=== PATIENT | male | born 1985 | race Caucasian/White ===

== ENCOUNTER 2022-04-03 10:31 | Emergency (ER) | payer OTHER ==
[~2022-04-03] VITALS: Ht 165.1 cm; Wt 81.7 kg
== END 2022-04-03 11:50 | disposition home or self-care (01) ==
LOC: ED 10:31
DX: S93.401A Sprain of unspecified ligament of right ankle, initial encounter (principal); X58.XXXA Exposure to other specified factors, initial encounter
CPT/HCPCS: 73610; 99283-25

== ENCOUNTER 2022-11-23 21:20 | Emergency (ER) | payer OTHER ==
[~2022-11-23] VITALS: Ht 165.1 cm; Wt 81.7 kg
[2022-11-24 00:26] LABS: BILIRUBIN, URINE NEGATIVE (negative); BLOOD/HGB, URINE NEGATIVE (Negative); KETONE, URINE NEGATIVE (Negative); LEUK ESTERASE, URINE NEGATIVE (negative); NITRITE, URINE NEGATIVE (negative); PH, URINE 5.5 (5-7)
[2022-11-24 01:43] LABS: BASOPHILS 1.4 % (0-2); EOSINOPHILS 2.4 % (0-6); HEMATOCRIT 43.5 % (35.0-50.0); LYMPHOCYTES 46.1 % (24-44); MCH 29.2 (27-36); MCHC 34.4 g/dl (30-36); MCV 84.8 fl (81-99); MONOCYTES 7.7 % (0-12); NEUTROPHILS 42.4 % (39-80); PLATELET COUNT 242 K/uL (140-440); RBC 5.13 M/ul (4.3-5.7); RDW 13.2 (10.5-15.0)
[2022-11-24 02:05] LABS: ALBUMIN 4.4 g/dL (3.4-5.0); ALBUMIN/GLOBULIN RATIO 1.57 (1.1-2.4); ANION GAP 11.8 (7-21); BILIRUBIN, TOTAL 0.6 ng/dL (0.2-1.0); BUN/CREATININE RATIO 18.57 (6.0-28.6); CALCIUM 8.7 mg/dL (8.5-10.1); CREATININE, SERUM 1.4 mg/dL (0.70-1.30); POTASSIUM 3.8 mmol/L (3.5-5.1); PROTEIN, TOTAL 7.2 g/dL (6.4-8.2)
[2022-11-24] MEDS ORDERED: CYCLOBENZAPRINE10 MG PO (02:13)
[2022-11-24 03:00] VITALS: BP 116/72
== END 2022-11-24 03:00 | disposition home or self-care (01) ==
LOC: ED 21:20
PROVIDERS: Family Medicine
DX: S39.012A Strain of muscle, fascia and tendon of lower back, initial encounter (principal); E86.0 Dehydration; X50.0XXA Overexertion from strenuous movement or load, initial encounter
CPT/HCPCS: 36415; 72131; 80053; 81003; 85025; 96374; 99284-25; J1885; J7030